=== PATIENT | male | born 2000 | race Two or more races ===

== ENCOUNTER 2023-11-26 13:09 | Emergency (ER) | payer OTHER ==
[~2023-11-26] VITALS: Ht 180.3 cm; Wt 95.5 kg
[2023-11-26 14:20] VITALS: BP 128/80; PULSE 91; RESP 16; TEMP 98.2; O2SAT 98
[2023-11-26] MEDS ORDERED: IBUP-1456 PO (14:53)
== END 2023-11-26 15:11 | disposition home or self-care (01) ==
LOC: ER 13:09
DX: S92.331A Displaced fracture of third metatarsal bone, right foot, initial encounter for closed fracture (principal); S92.341A Displaced fracture of fourth metatarsal bone, right foot, initial encounter for closed fracture; Z88.1 Allergy status to other antibiotic agents; X50.1XXA Overexertion from prolonged static or awkward postures, initial encounter; Y93.68 Activity, volleyball (beach) (court); Y92.89 Other specified places as the place of occurrence of the external cause; Y99.8 Other external cause status
CPT/HCPCS: 29515; 73630